=== PATIENT | female | born 1965 | race Two or more races ===

== ENCOUNTER 2017-06-10 00:46 | Emergency (ER) | payer MEDICAID, OTHER ==
[~2017-06-10] VITALS: Ht 160 cm; Wt 86.2 kg
[2017-06-10] MEDS ORDERED: hydrALAZINE HCL IV 20 MG VIAL ONE (01:20)
--- NOTE | 2017-06-10 01:20 | NUR ---
PT CAME FROM HOME WITH NOSE BLEED X 50 MINUTES WITHOUT TRAUMA, PER PT "APPLIED CONTINUOUS PRESSURE ENTIRE TIME" BREATHING EVEN/UNLABORED, SKIN WARM/DRY/INTACT, NO C/O PAIN AT THIS TIME
[2017-06-10] MEDS ORDERED: hydrALAZINE HCL IV 20 MG VIAL IV ONE (01:30)
--- NOTE | 2017-06-10 02:20 | NUR ---
NASAL PACKING TO [facility] BY REBECCA DOOLEY.
[2017-06-10 02:51] VITALS: BP 135/69
== END 2017-06-10 02:52 | disposition home or self-care (01) ==
LOC: ER 00:48
DX: R04.0 Epistaxis (principal); I10 Essential (primary) hypertension; Z79.82 Long term (current) use of aspirin
CPT/HCPCS: 30901; 96374; 99284; A4606; J0360; Z7610

== ENCOUNTER 2017-06-12 12:36 | Emergency (ER) | payer OTHER ==
[~2017-06-12] VITALS: Ht 170.2 cm; Wt 86.2 kg
[2017-06-12 12:36] VITALS: BP 132/76
== END 2017-06-12 13:24 | disposition home or self-care (01) ==
LOC: ER 12:41
DX: Z48.00 Encounter for change or removal of nonsurgical wound dressing (principal); I10 Essential (primary) hypertension
CPT/HCPCS: 99281; A4606; Z7610; Z7502

== ENCOUNTER 2019-04-30 03:07 | Emergency (ER) | payer OTHER ==
[~2019-04-30] VITALS: Ht 175.3 cm; Wt 85.3 kg
--- NOTE | 2019-04-30 03:24 | NUR ---
bibra. c/o "HAVING ABD PAIN X3 HRS. -N/V/D." AOX4. AMBULATORY. -SOB NOTED.
[2019-04-30] MEDS ORDERED: KETOROLAC TROMETHAMINE 15 MG/ML VIAL ONE (03:53)
[2019-04-30] MEDS ORDERED: ONDANSETRON HCL/PF 4 MG/2 ML VIAL ONE (03:53)
[2019-04-30] MEDS ORDERED: HYDROMORPHONE 1 MG/1 ML DISP.SYRIN ONE (03:54)
[2019-04-30] MEDS ORDERED: HYDROMORPHONE INJ 2 MG/ML DISP.SYRIN IV ONE (04:00)
[2019-04-30] MEDS ORDERED: KETOROLAC TROMETHAMINE INJ 30 MG/ML VIAL IV ONE (04:00)
[2019-04-30] MEDS ORDERED: ONDANSETRON HCL/PF 4 MG/2 ML VIAL IVP ONE (04:00)
[2019-04-30 04:05] LABS: BASOPHILS % (AUTO) 0.4 % (0.0-2.0); EOSINOPHILS % (AUTO) 0.1 % (0.0-6.0); HEMATOCRIT 39 % (33-45); HEMOGLOBIN 13.4 g/dL (11.5-14.8); LYMPHOCYTES # (AUTO) 0.9 /CMM (0.8-4.8); LYMPHOCYTES % (AUTO) 9.1 % (20.0-44.0); MEAN CORPUSCULAR HGB CONC 35 g/dl (31.0-36.0); MEAN CORPUSCULAR VOLUME 86 fL (82-100); MONOCYTES # (AUTO) 0.2 /CMM (0.1-1.30); MONOCYTES % (AUTO) 2.2 % (2.0-12.0); NEUTROPHILS % (AUTO) 88.2 % (43.0-81.0); PLATELET COUNT (AUTO) 198 /CMM (150-450); RED BLOOD CELL COUNT(AUTO) 4.52 MIL/uL (4.0-5.2); WHITE BLOOD COUNT (AUTO) 10.2 K/uL (4.3-11.0)
[2019-04-30 04:18] LABS: ALANINE AMINOTRANSFERASE 89 U/L (12-78); ALBUMIN 4.1 g/dL (3.4-5.0); ALKALINE PHOSPHATASE 102 U/L (46-116); ASPARTATE AMINOTRANSFERASE 69 U/L (15-37); BILIRUBIN,DIRECT 0.2 mg/dL (0.0-0.2); BILIRUBIN,TOTAL 0.4 mg/dL (0.2-1.0); CALCIUM, SERUM 9.6 mg/dL (8.5-10.1); CARBON DIOXIDE 25 mmol/L (21-32); CHLORIDE 100 mmol/L (98-107); CREATININE 1.1 mg/dL (0.6-1.3); GLUCOSE 156 mg/dL (74-106); LIPASE 126 U/L (73-393); POTASSIUM 3.6 mmol/L (3.5-5.1); SODIUM SERUM 135 mmol/L (136-145); TOTAL PROTEIN, SERUM 8.2 g/dL (6.4-8.2); UREA NITROGEN, BLOOD 17 mg/dL (7-18)
--- NOTE | 2019-04-30 04:42 | NUR ---
US AT BEDSIDE
[2019-04-30 05:42] VITALS: BP 131/83
== END 2019-04-30 05:42 | disposition home or self-care (01) ==
LOC: ER 03:11
DX: K80.20 Calculus of gallbladder without cholecystitis without obstruction (principal); I10 Essential (primary) hypertension
CPT/HCPCS: 36415; 76705; 80048; 80076; 83690; 84484; 85025; 85730; 93005; 96374; 96375; 99284; J1170; J1885; J2405